=== PATIENT | female | born 1965 | race Caucasian/White ===

== ENCOUNTER → 2016-07-27 | Outpatient (CLI) | payer OTHER ==
--- NOTE | ~2016-07-27 | CT3 ---
[facility] A Service of [facility] RADIOLOGY TEXT RESULTS PATIENT: JULIANO YU LOCATION: [facility] : 63 UNIT #: [id number] AGE: [address]: Shabbir Ramires MD SEX: F ORDER DR: [id number] [facility] [address] [place], [place] [address] [id number] O MR#: [id number] Acc #: [id number] NAME: JULIANO YU : 1965 SEX: F STUDY DATE/TIME: 07/27/2016 8:41 UNIT: [facility] ROOM: STUDY DESCRIPTION: CT Abd and Pelv WWo Cont Attending Physician: Shabbir Ramires M.D. Referring Physician: Shabbir Ramires M.D. Ordering Physician: Shabbir Ramires M.D. Primary Care Physician: Tres Nava Jr., D.O. MEDICAL IMAGING REPORT This report is preliminary unless electronic signature is present EXAM CT abdomen and pelvis without and with contrast INDICATIONS Microhematuria for the past 9-12 months. No other current symptoms. PROCEDURE Unenhanced CT of the abdomen and pelvis. Postcontrast CT of the abdomen and pelvis including multiphase acquisition through the kidneys and 5-minute delayed imaging of the abdomen and pelvis. The CT exam was performed with one or more of the following radiation dose reduction techniques: automatic exposure control, adjustment of mA and/or kV according to patient size, and iterative reconstruction. COMPARISON None FINDINGS Abdomen without contrast: Included lung bases are clear. There is a small amount of pericardial fluid along the undersurface of the heart. No radiodense gallstones. No radiodense urinary system calculus. Pelvis without contrast: No radiodense bladder calculus. There are a few phleboliths in the pelvis. Abdomen with contrast: The kidneys enhance symmetrically. No enhancing renal mass. There is symmetric excretion of contrast. The right ureter [facility] A Service of [facility] RADIOLOGY TEXT RESULTS PATIENT: [facility]ULIAN[facility]U [facility] UN[facility] #: [id number] AGE: [address]: Shabbir Ramires MD SEX: F ORDER DR: is not well opacified. No abnormal filling defect in the opacified segments. Liver, spleen, adrenal gland, pancreas and gallbladder are unremarkable. The bowel loops are nondilated. Moderate colonic stool. Appendix is normal. Pelvis with contrast: No bladder mass. No adnexal mass. The uterus is retroverted. No pelvic fluid. No aggressive appearing bone lesion. IMPRESSION 1. No finding to explain the patient's microhematuria. 2. Note that majority of the right ureter is not well opacified. 3. Moderately large colonic stool burden. 4. Small amount of pericardial fluid along the inferior aspect of the heart. Dictated by... Alex High M.D. THIS IS AN ELECTRONICALLY VERIFIED REPORT Alex High M.D. at 07/28/2016 3:55 PM DENIS/jonathan TD: 07/28/2016 10:17 JOB #: [id number] MEDICAL IMAGING REPORT Page 1 of 1 COPY
== END | disposition home or self-care (01) ==
LOC: CCAT 08:11
DX: R31.9 Hematuria, unspecified (principal); I31.3 Pericardial effusion (noninflammatory)
CPT/HCPCS: 74178; Q9967